=== PATIENT | female | born 1950 | race Caucasian/White ===

== ENCOUNTER 2024-05-22 09:10 | Emergency (ER) | payer MEDICARE, SELFPAY ==
[2024-05-22 09:28] VITALS: BP 127/48; PULSE 89; RESP 18; TEMP 36.7; O2SAT 97
--- NOTE | 2024-05-22 09:28 | ED.SKABFB ---
HPI - Skin/Abscess/Foreign Bdy General Chief complaint: Upper Respiratory Infection Stated complaint: spots on back of throat and head Time Seen by Provider: 05/22/24 10:00 Source: patient, RN notes reviewed and old records reviewed Mode of arrival: ambulatory Limitations: no limitations History of Present Illness HPI narrative: patient presents with multiple complaints. She reports sore throat for couple of days, ear discomfort and decreased hearing for a couple of days. She is also complaining of a scaly patch and a scalp that is causing some itching. She reports this has been present for about a week. She denies any injury or trauma. She denies any change in shampoos, air products, soaps. She has not been taking anything for her symptoms. She is able to swallow without difficulty. She voices no other concerns or complaints today. Related Data Home Medications ?Medication ?Instructions ?Recorded ?Confirmed ?Last Taken ?Type aspirin 325 mg tablet 325 mg PO .COMPLEX 07/28/19 Unknown History atorvastatin 40 mg tablet 40 mg PO DAILY 07/28/19 Unknown History cetirizine 10 mg tablet 10 mg PO DAILY 07/28/19 Unknown History ranitidine HCl 300 mg capsule 300 mg PO .COMPLEX 07/28/19 Unknown History Allergies Allergy/AdvReac Type Severity Reaction Status Date / Time No Known Allergies Allergy Verified 05/22/24 09:27 Review of Systems Review of Systems: All systems reviewed & are unremarkable except as noted in HPI and below Constitutional: Constitutional: Reports no additional constitutional complaints ENT: Reports system reviewed and no additional complaints, except as documented, Reports otalgia, Reports hearing loss and Reports sore throat Cardiovascular: Cardiovascular: Reports no additional cardiovascular complaints Respiratory: Respiratory: Reports no additional respiratory complaints Gastrointestinal: Gastrointestinal: Reports no additional gastrointestinal complaints Integumentary/Breasts: Skin/Breast: Reports pruritus PMFSH Past Medical History Medical History CKD (chronic kidney disease), stage III HLD (hyperlipidemia) Comments At the time of my signature, I reviewed and agree with the nursing past medical, surgical, social, and family history. There is no relevant family history pertinent to the patient complaint. Exam Const: General: cooperative, no acute distress, alert and awake Orientation/consciousness: oriented to person, oriented to place and oriented to time HENMT: Head: normal to inspection Ears: Abnormal EAC present cerumen impaction bilateral Mouth: Yes moist mucous membranes Throat: posterior oropharynx abnormal erythema Resp: Effort & Inspection: normal respiratory effort and able to speak in complete sentences Auscultation: clear to auscultation bilaterally, no crackles, no rales, no rhonchi and no wheezes Cardio: Palpation: normal PMI Rate: regular rate Rhythm: regular rhythm Heart sounds: S1 normal heart sound present and S2 normal heart sound present Skin: Full body images:  1. Scaly irritated patch consistent with dermatitis. No loss of hair Neuro: General: oriented to person, oriented to place and oriented to time Cranial nerves: Yes CN's II-XII intact bilaterally Psych: Appearance: grossly normal Thought process: Normal thought process present Insight: Good insight present (Psych) Judgement: Good judgement present (Psych) Course Course Level of Care: Express Care Visit Vital Signs Vital signs: Reviewed MDM - Skin/Abscess/Foreign Bdy MDM Narrative Medical decision making narrative: patient with multiple complaints. Cerumen impaction very deep. Advised to treat with Debrox at home. There is redness to the throat, some dermatitis to the head. Treat symptomatically with prednisone for short time. Patient advised to follow with primary care provider. Emergency department for new or worse symptoms. Negative COVID and strep today. Culture pending. Discharge instructions reviewed with patient, as well as provided in writing per nursing staff. The instructions also include specific and strict return/GO TO THE ER as well as f/u information. All questions have been answered, and the patient deny any further questions with discharge and discharge plan. Some parts of this dictation were generated by voice recognition software and may contain typographical and/or grammatical inaccuracies. Differential Diagnosis Differential diagnosis: Likely dermatophytosis, urticaria, cellulitis, eczema and other (Otitis media, otitis externa) Medical Records Attestation: I reviewed the patient's medical records. Lab Data Attestation: I reviewed the patient's lab results. Discharge Plan Discharge Clinical Impression: Dermatitis, Bilateral impacted cerumen Patient Disposition: Home, Self-Care Condition: Stable Instructions: Antibiotic Form, Dermatitis (ED) Additional Instructions: take all medications as prescribed. Follow with primary care provider. Emergency department for any new or worse symptoms Patient Language: Bhutanese Prescriptions: New prednisone 50 mg tablet 50 mg PO DAILY Qty: 5 0RF Ear Wax Removal Drops 6.5 % drops 5 drp EACH EAR Q12H 4 Days Qty: 15 0RF No Action esomeprazole magnesium 40 mg capsule,delayed release(DR/EC) 40 mg PO DAILY Qty: 90 2RF montelukast 10 mg tablet 10 mg PO .COMPLEX Qty: 90 2RF Rx Instructions: 10 mg PO daily in the evening; topiramate 50 mg tablet 50 mg PO DAILY Qty: 90 2RF aspirin 325 mg tablet 325 mg PO .COMPLEX Rx Instructions: 325 mg PO QHS; atorvastatin 40 mg tablet 40 mg PO DAILY cetirizine 10 mg tablet 10 mg PO DAILY ranitidine HCl 300 mg capsule 300 mg PO .COMPLEX Rx Instructions: 300 mg PO QHS; albuterol sulfate [ProAir HFA] 90 mcg/actuation HFA aerosol inhaler 1 inhalation INHALATION Q4H PRN (Reason: shortness of breath or wheezing) Qty: 6.7 0RF (DME) Aerochamber Plus Flow-Vu Spacer See Rx Instructions .ROUTE .MEDSUPPLY Qty: 1 0RF Rx Instructions: utd duloxetine 60 mg capsule,delayed release(DR/EC) See Rx Instructions .ROUTE .COMPLEX Qty: 90 2RF Dose Instruction: TAKE 1 CAPSULE DAILY Rx Instructions: TAKE 1 CAPSULE DAILY Follow-up/Referrals: Brandi,MD Carla [Primary Care Provider] - 2 Weeks Time of Disposition: 10:13
[2024-05-22 10:03] LABS: EDCOVIDSCREEN Negative (Negative); EDSTREPNEGPOS1 Negative (Negative)
== END 2024-05-22 10:18 | disposition home or self-care (01) ==
PROVIDERS: Emergency Provider Nurse Practitioner Family; PCP Family Medicine
DX: L30.9 Dermatitis, unspecified (principal); H61.23 Impacted cerumen, bilateral; Z20.822 Contact with and (suspected) exposure to COVID-19; N18.30 Chronic kidney disease, stage 3 unspecified; E78.5 Hyperlipidemia, unspecified
CPT/HCPCS: 87081; 87426; 87880; 99213; G0463